=== PATIENT | male | born 1955 | race Caucasian/White ===

== ENCOUNTER 2017-10-09 09:45 | Day surgery (SDC) | payer OTHER ==
[~2017-10-09] VITALS: Ht 170.2 cm; Wt 107.2 kg
[~2017-10-09 09:45] MED LIST: AMLO5TAB2 PO; ASPI-515 PO; FENO160T PO; FISH OIL PO; LOSA100T6 PO; MULT-516 PO; VITA1TAB46 PO
[2017-10-09 10:59] LABS: BASOPHILS # (AUTO) 0.06 x10^3/uL (0-0.1); BASOPHILS % (AUTO) 1 % (0-1); EOSINOPHILS # (AUTO) 0.14 x10^3/uL (0-0.4); EOSINOPHILS % (AUTO) 2 % (1-7); LYMPHOCYTES # (AUTO) 1.75 x10^3/uL (1-3.4); LYMPHOCYTES % (AUTO) 22 % (22-44); MD NO; MEAN CORPUSCULAR HEMOGLOBIN 30.4 pg (27.5-34.5); MEAN CORPUSCULAR VOLUME 91.9 fL (81-97); MEAN PLATELET VOLUME 8.3 fL (7.4-10.4); MONOCYTES # (AUTO) 0.75 x10^3/uL (0.2-0.8); MONOCYTES % (AUTO) 10 % (2-9); NEUTROPHILS # (AUTO) 5.25 x10^3/uL (1.8-6.8); NEUTROPHILS % (AUTO) 66 % (42-75); PLATELET COUNT 451 x10^3/uL (130-400); RED BLOOD COUNT 5.11 x10^6/uL (4.38-5.82); RED CELL DISTRIBUTION WIDTH 14.7 % (9.4-14.8)
[2017-10-09 11:02] LABS: INTERNATIONAL NORMALIZED RATIO 1.04 (0.93-1.1); PROTHROMBIN TIME 10.8 Seconds (9.6-11.5)
[2017-10-09 11:07] LABS: ALBUMIN 4.1 g/dL (3.4-5.0); ANION GAP 7 mmol/L (5-15); CALCIUM 8.9 mg/dL (8.5-10.1); CHLORIDE 109 mmol/L (98-107)
[2017-10-09 11:10] LABS: ALANINE AMINOTRANSFERASE 32 U/L (12-78); ALKALINE PHOSPHATASE 44 U/L (45-117); BILIRUBIN,TOTAL 0.9 mg/dL (0.2-1.0); CREATININE 1.16 mg/dL (0.7-1.3); TOTAL PROTEIN 8.5 g/dL (6.4-8.2)
[2017-10-09] MEDS: LACTATED RINGERS 1,000 ML IV SCH ×2 (11:15→12:55)
[2017-10-09] MEDS ORDERED: LACTATED RINGERS 1,000 ML IV SCH ×2 (12:38→19:30)
[2017-10-09] MEDS ORDERED: LIDOCAINE-MPF 1%, 2ML INFIL ONE (13:00)
[2017-10-09] MEDS ORDERED: BUPIVACAINE 0.25% ONE (15:05)
[2017-10-09] MEDS ORDERED: EPINEPHRINE 1 MG/ML, 1ML ONE (15:05)
[2017-10-09] MEDS ORDERED: THROMBIN 5,000 UNIT VIAL TP ONE (15:05)
[2017-10-09] MEDS ORDERED: EPHEDRINE 50 MG/ML, 1ML ONE (15:23)
[2017-10-09] MEDS ORDERED: NEOSTIGMINE 1 MG/ML, 10ML ONE (15:23)
[2017-10-09] MEDS ORDERED: KETAMINE 10 MG/ML, 20ML ONE (15:23)
[2017-10-09] MEDS ORDERED: GLYCOPYRROLATE 0.2MG/1ML, 5ML ONE (15:23)
[2017-10-09] MEDS ORDERED: CEFAZOLIN 1,000 MG ONE (15:23)
[2017-10-09] MEDS ORDERED: KETOROLAC 30 MG/1 ML ONE (15:23)
[2017-10-09] MEDS ORDERED: PHENYLEPHRINE 10 MG/ML ONE (15:23)
[2017-10-09] MEDS ORDERED: LABETALOL 5MG/ML, 20ML ONE (15:23)
[2017-10-09] MEDS ORDERED: PROMETHAZINE 25 MG/ML, 1ML ONE (15:51)
[2017-10-09] MEDS ORDERED: PROPOFOL 10 MG/ML, 20ML ONE (15:52)
[2017-10-09] MEDS ORDERED: ROCURONIUM 10MG/ML,5ML ONE (15:52)
[2017-10-09] MEDS ORDERED: DEXAMETHASONE 4 MG/ML, 1ML ONE (15:52)
[2017-10-09] MEDS ORDERED: MORPHINE SULFATE 4 MG/ML, 1ML IVPush PRN (16:30)
[2017-10-09] MEDS ORDERED: ACETAMINOPHEN 325 MG TABLET PO PRN (16:30)
[2017-10-09] MEDS ORDERED: OXYcodone 5 MG/5 ML ORAL.SOL UDC PO PRN (16:30)
[2017-10-09] MEDS ORDERED: hydrALAzine 20 MG/ML, 1ML IV PRN (16:30)
[2017-10-09] MEDS ORDERED: LABETALOL 5MG/ML, 20ML IV PRN (16:30)
[2017-10-09] MEDS ORDERED: PROMETHAZINE 25 MG/ML, 1ML IV PRN (16:30)
[2017-10-09] MEDS ORDERED: MORPHINE SULFATE 4 MG/ML, 1ML ONE (16:44)
[2017-10-09] MEDS: FENTANYL PF 100 MCG/2ML IV PRN ×3 (17:35→17:50)
[2017-10-09] MEDS ORDERED: ACETAMINOPHEN 650 MG/20.3 ML UDC ONE (17:44)
[2017-10-09] MEDS ORDERED: FENTANYL PF 100 MCG/2ML ONE (17:45)
[2017-10-09] MEDS ORDERED: OXYcodone 5 MG/5 ML ORAL.SOL UDC ONE (17:45)
[2017-10-09] MEDS ORDERED: morphine SULFATE 10 MG/ML, 1ML IV PRN (19:30)
[2017-10-09] MEDS ORDERED: OXYcodone/APAP 5/325MG TABLET PO PRN (19:30)
[2017-10-09] MEDS ORDERED: ONDANSETRON 2MG/ML, 2ML IV PRN (19:30)
== END 2017-10-09 20:39 | disposition home or self-care (01) ==
LOC: OUT 09:45 → 4NOR 18:43 → OUT 20:39
PROVIDERS: ATTEND Urology
DX: D40.11 Neoplasm of uncertain behavior of right testis (principal); Z72.89 Other problems related to lifestyle; Z87.891 Personal history of nicotine dependence; Z88.0 Allergy status to penicillin; Z98.890 Other specified postprocedural states
CPT/HCPCS: 36415; 54530; 80053; 82105; 83615; 83625; 84702; 85025; 85610; 85730; 88304; J0690; J1100; J1885; J2370; J2704; J2710; J3010; J3490; J7120; J0171

== ENCOUNTER → 2017-10-17 | Outpatient (CLI) | payer OTHER ==
[~2017-10-17] MED LIST changes: +OMNIPAQUE 350 MG/ML, 100ML BOTTLE ONE
== END ==
LOC: RAD 10:10
PROVIDERS: ATTEND Urology
DX: C62.90 Malignant neoplasm of unspecified testis, unspecified whether descended or undescended (principal)
CPT/HCPCS: 71048; 74177; Q9967

== ENCOUNTER → 2017-11-04 | Outpatient (CLI) | payer OTHER ==
[~2017-11-04] MED LIST changes: +ENOXAPARIN SQ
== END | disposition home or self-care (01) ==
LOC: RAD 12:08
PROVIDERS: ATTEND Urology
DX: N50.1 Vascular disorders of male genital organs (principal); N28.1 Cyst of kidney, acquired; C62.90 Malignant neoplasm of unspecified testis, unspecified whether descended or undescended; Z90.81 Acquired absence of spleen
CPT/HCPCS: 74178; Q9967

== ENCOUNTER 2017-11-05 19:05 | Inpatient (IN) | payer OTHER ==
[~2017-11-05] VITALS: Ht 170.2 cm; Wt 104.8 kg
[~2017-11-05 19:05] MED LIST changes: -ENOXAPARIN SQ; -OMNIPAQUE 350 MG/ML, 100ML BOTTLE ONE
[2017-11-05] MEDS ORDERED: methylPREDNISolone SOD SUCC 125 MG/2 ML IVPush SCH (20:00)
[2017-11-05] MEDS ORDERED: SODIUM CHLORIDE FLUSH 10ML SYR IVF ONE (20:00)
[2017-11-05] MEDS ORDERED: DIPHENHYDRAMINE 50 MG/ML, 1ML IVPush ONE (20:00)
[2017-11-05 20:18] LABS: BASOPHILS # (AUTO) 0.05 x10^3/uL (0-0.1); BASOPHILS % (AUTO) 1 % (0-1); EOSINOPHILS # (AUTO) 1.24 x10^3/uL (0-0.4); EOSINOPHILS % (AUTO) 14 % (1-7); LYMPHOCYTES # (AUTO) 1.73 x10^3/uL (1-3.4); LYMPHOCYTES % (AUTO) 20 % (22-44); MD NO; MEAN CORPUSCULAR HEMOGLOBIN 30.5 pg (27.5-34.5); MEAN CORPUSCULAR HGB CONC 33.6 g/dL (33.2-36.2); MEAN CORPUSCULAR VOLUME 90.7 fL (81-97); MEAN PLATELET VOLUME 8.1 fL (7.4-10.4); MONOCYTES # (AUTO) 0.81 x10^3/uL (0.2-0.8); MONOCYTES % (AUTO) 9 % (2-9); NEUTROPHILS # (AUTO) 5.08 x10^3/uL (1.8-6.8); NEUTROPHILS % (AUTO) 57 % (42-75); PLATELET COUNT 341 x10^3/uL (130-400); RED BLOOD COUNT 4.74 x10^6/uL (4.38-5.82); RED CELL DISTRIBUTION WIDTH 13.7 % (9.4-14.8)
[2017-11-05 20:26] LABS: INTERNATIONAL NORMALIZED RATIO 1.04 (0.93-1.1); PROTHROMBIN TIME 10.7 Seconds (9.6-11.5)
[2017-11-05 20:29] LABS: ALANINE AMINOTRANSFERASE 36 U/L (12-78); ALBUMIN 3.5 g/dL (3.4-5.0); ANION GAP 8 mmol/L (5-15); CALCIUM 9.4 mg/dL (8.5-10.1); CHLORIDE 107 mmol/L (98-107)
[2017-11-05] MEDS ORDERED: HEPARIN 5,000 UNITS/ML, 1ML IV ONE (20:30)
[2017-11-05 20:32] LABS: ALKALINE PHOSPHATASE 51 U/L (45-117); BILIRUBIN,TOTAL 0.4 mg/dL (0.2-1.0); TOTAL PROTEIN 7.8 g/dL (6.4-8.2)
[2017-11-05] MEDS ORDERED: DIPHENHYDRAMINE 50 MG/ML, 1ML ONE (20:54)
[2017-11-05] MEDS ORDERED: methylPREDNISolone SOD SUCC 125 MG/2 ML ONE (20:54)
[2017-11-05] MEDS ORDERED: HEPARIN 5,000 UNITS/ML, 1ML ONE (21:34)
[2017-11-05] MEDS ORDERED: HEPARIN 25,000 UNITS/500ML PMX 500 ML ONE (21:34)
[2017-11-05] MEDS: HEPARIN 25,000 UNITS/500ML PMX 500 ML IV PRN (21:44)
[2017-11-05] MEDS ORDERED: LABETALOL 5MG/ML, 20ML IVPush PRN (22:00)
[2017-11-05] MEDS ORDERED: ONDANSETRON ODT 4 MG PO PRN (22:00)
[2017-11-05 23:15] VITALS: BP 150/94
[2017-11-06] MEDS: TEMAZEPAM 15 MG CAPSULE PO PRN ×2 (00:28→20:48)
[2017-11-06 02:58] VITALS: BP 113/74
[2017-11-06 04:32] LABS: BASOPHILS # (AUTO) 0.01 x10^3/uL (0-0.1); BASOPHILS % (AUTO) 0 % (0-1); EOSINOPHILS # (AUTO) 0.02 x10^3/uL (0-0.4); EOSINOPHILS % (AUTO) 0 % (1-7); LYMPHOCYTES # (AUTO) 0.88 x10^3/uL (1-3.4); LYMPHOCYTES % (AUTO) 11 % (22-44); MD NO; MEAN CORPUSCULAR HEMOGLOBIN 30.6 pg (27.5-34.5); MEAN CORPUSCULAR HGB CONC 33.2 g/dL (33.2-36.2); MEAN CORPUSCULAR VOLUME 92.2 fL (81-97); MEAN PLATELET VOLUME 8.4 fL (7.4-10.4); MONOCYTES # (AUTO) 0.04 x10^3/uL (0.2-0.8); MONOCYTES % (AUTO) 1 % (2-9); NEUTROPHILS # (AUTO) 7.18 x10^3/uL (1.8-6.8); NEUTROPHILS % (AUTO) 88 % (42-75); PLATELET COUNT 370 x10^3/uL (130-400); RED BLOOD COUNT 4.68 x10^6/uL (4.38-5.82); RED CELL DISTRIBUTION WIDTH 14.1 % (9.4-14.8)
[2017-11-06 04:45] LABS: ALBUMIN 3.5 g/dL (3.4-5.0); ANION GAP 9 mmol/L (5-15); CALCIUM 9.3 mg/dL (8.5-10.1); CHLORIDE 107 mmol/L (98-107)
[2017-11-06 04:51] LABS: ALANINE AMINOTRANSFERASE 33 U/L (12-78); ALKALINE PHOSPHATASE 47 U/L (45-117); BILIRUBIN,TOTAL 0.6 mg/dL (0.2-1.0); CREATININE 1.15 mg/dL (0.7-1.3); TOTAL PROTEIN 7.8 g/dL (6.4-8.2)
[2017-11-06] MEDS: HEPARIN 5,000 UNITS/ML, 1ML IV PRN ×2 (05:05→18:36)
[2017-11-06 07:08] VITALS: BP 130/81
[2017-11-06] MEDS: AMLODIPINE 5 MG TABLET PO SCH (09:00)
[2017-11-06] MEDS: FENOFIBRATE 145 MG TABLET PO SCH (09:00)
[2017-11-06] MEDS: LOSARTAN 50MG TABLET PO SCH (09:00)
[2017-11-06 12:47] VITALS: BP 128/77
[2017-11-06] MEDS ORDERED: DIPHENHYDRAMINE 50 MG/ML, 1ML IVPush ONE (18:30)
[2017-11-06 19:36] VITALS: BP 122/77
[2017-11-06] MEDS: HEPARIN 25,000 UNITS/500ML PMX 500 ML IV PRN (20:11)
[2017-11-07 02:38] VITALS: BP 109/70
[2017-11-07 04:53] LABS: BASOPHILS # (AUTO) 0.06 x10^3/uL (0-0.1); BASOPHILS % (AUTO) 1 % (0-1); EOSINOPHILS # (AUTO) 0.43 x10^3/uL (0-0.4); EOSINOPHILS % (AUTO) 4 % (1-7); LYMPHOCYTES # (AUTO) 3.16 x10^3/uL (1-3.4); LYMPHOCYTES % (AUTO) 26 % (22-44); MD NO; MEAN CORPUSCULAR HEMOGLOBIN 30.6 pg (27.5-34.5); MEAN CORPUSCULAR HGB CONC 33.7 g/dL (33.2-36.2); MEAN CORPUSCULAR VOLUME 90.7 fL (81-97); MEAN PLATELET VOLUME 8.4 fL (7.4-10.4); MONOCYTES # (AUTO) 1.14 x10^3/uL (0.2-0.8); MONOCYTES % (AUTO) 10 % (2-9); NEUTROPHILS # (AUTO) 7.17 x10^3/uL (1.8-6.8); NEUTROPHILS % (AUTO) 60 % (42-75); PLATELET COUNT 347 x10^3/uL (130-400); RED BLOOD COUNT 4.43 x10^6/uL (4.38-5.82); RED CELL DISTRIBUTION WIDTH 14.2 % (9.4-14.8)
[2017-11-07 04:55] LABS: CHLORIDE 109 mmol/L (98-107)
[2017-11-07 04:59] LABS: ANION GAP 9 mmol/L (5-15); CALCIUM 9.1 mg/dL (8.5-10.1); CREATININE 1.22 mg/dL (0.7-1.3)
[2017-11-07] MEDS: HEPARIN 5,000 UNITS/ML, 1ML IV PRN (07:10)
[2017-11-07 07:24] VITALS: BP 132/86
[2017-11-07] MEDS: FENOFIBRATE 145 MG TABLET PO SCH (08:47)
[2017-11-07] MEDS: LOSARTAN 50MG TABLET PO SCH (08:47)
[2017-11-07] MEDS: AMLODIPINE 5 MG TABLET PO SCH (08:47)
[2017-11-07] MEDS: HEPARIN 25,000 UNITS/500ML PMX 500 ML IV PRN (13:11)
[2017-11-07 13:33] VITALS: BP 127/80
[2017-11-07] MEDS ORDERED: ENOXAPARIN SQ (15:18)
[2017-11-07] MEDS ORDERED: ENOXAPARIN 100 MG/ML SQ SCH (15:30)
== END 2017-11-07 17:44 | disposition home or self-care (01) | DRG 442 ==
LOC: ED 20:34 → EDIP 21:08 → 3NW 22:20
PROVIDERS: ADMIT Internal Medicine; ATTEND Internal Medicine
DX: I81 Portal vein thrombosis (principal); N99.840 Postprocedural hematoma of a genitourinary system organ or structure following a genitourinary system procedure; C62.90 Malignant neoplasm of unspecified testis, unspecified whether descended or undescended; D64.9 Anemia, unspecified; E78.1 Pure hyperglyceridemia; F17.210 Nicotine dependence, cigarettes, uncomplicated; I10 Essential (primary) hypertension; R21 Rash and other nonspecific skin eruption; Y83.6 Removal of other organ (partial) (total) as the cause of abnormal reaction of the patient, or of later complication, without mention of misadventure at the time of the procedure; D72.829 Elevated white blood cell count, unspecified; Y92.89 Other specified places as the place of occurrence of the external cause; Z90.79 Acquired absence of other genital organ(s); Z90.81 Acquired absence of spleen
CPT/HCPCS: 36415; 76870; 80048; 80053; 83690; 85025; 85520; 85610; 85730; 93005; 96374; 96375; J1644; J1650; J1200; J2930

== ENCOUNTER → 2018-02-05 | Outpatient (CLI) | payer OTHER ==
[~2018-02-05] MED LIST changes: -AMLO5TAB2 PO; +AMLO5TAB7 PO; +ENOXAPARIN SQ; -LOSA100T6 PO; +LOSA100T7 PO
== END | disposition home or self-care (01) ==
LOC: CFH 09:09
PROVIDERS: ATTEND Urology
DX: I31.8 Other specified diseases of pericardium (principal); N40.0 Benign prostatic hyperplasia without lower urinary tract symptoms; K40.90 Unilateral inguinal hernia, without obstruction or gangrene, not specified as recurrent; C62.90 Malignant neoplasm of unspecified testis, unspecified whether descended or undescended; Z87.891 Personal history of nicotine dependence
CPT/HCPCS: 74176

== ENCOUNTER → 2018-03-18 | Outpatient (CLI) | payer OTHER ==
[~2018-03-18] MED LIST changes: +GADOBUTROL 10 MMOL/10 ML VIAL ONE
== END | disposition home or self-care (01) ==
LOC: CFH 07:26
PROVIDERS: ATTEND Internal Medicine Gastroenterology
DX: I31.8 Other specified diseases of pericardium (principal); N28.1 Cyst of kidney, acquired; I81 Portal vein thrombosis; C62.91 Malignant neoplasm of right testis, unspecified whether descended or undescended; I10 Essential (primary) hypertension
CPT/HCPCS: 74183; 82565; A9585

== ENCOUNTER → 2018-05-13 | Outpatient (CLI) | payer OTHER ==
[~2018-05-13] MED LIST changes: +AMLO-150 PO; -AMLO5TAB7 PO; -GADOBUTROL 10 MMOL/10 ML VIAL ONE
== END | disposition home or self-care (01) ==
LOC: CFH 08:01
PROVIDERS: ATTEND Urology
DX: Q24.8 Other specified congenital malformations of heart (principal); R59.9 Enlarged lymph nodes, unspecified; Z85.47 Personal history of malignant neoplasm of testis
CPT/HCPCS: 74176

== ENCOUNTER → 2018-10-15 | Outpatient (CLI) | payer OTHER ==
[~2018-10-15] MED LIST changes: +LOSA100T14 PO; -LOSA100T7 PO
== END | disposition home or self-care (01) ==
LOC: CFH 08:57
PROVIDERS: ATTEND Urology
DX: C62.90 Malignant neoplasm of unspecified testis, unspecified whether descended or undescended (principal); Q24.8 Other specified congenital malformations of heart
CPT/HCPCS: 74176

== ENCOUNTER → 2019-10-14 | Outpatient (CLI) | payer OTHER | END | disposition home or self-care (01) | LOC: CFH 08:19 | PROVIDERS: ATTEND Urology | DX: I70.0 Atherosclerosis of aorta (principal); N40.0 Benign prostatic hyperplasia without lower urinary tract symptoms; M41.86 Other forms of scoliosis, lumbar region; Z85.47 Personal history of malignant neoplasm of testis | CPT/HCPCS: 74176 ==

== ENCOUNTER → 2020-10-19 | Outpatient (CLI) | payer OTHER ==
[~2020-10-19] MED LIST changes: -ASPI-515 PO; +ASPI-963 PO
== END | disposition home or self-care (01) ==
LOC: CFH 10:25
PROVIDERS: ATTEND Urology
DX: C62.11 Malignant neoplasm of descended right testis (principal); M51.36 Other intervertebral disc degeneration, lumbar region
CPT/HCPCS: 74176